=== PATIENT | male | born 1940 | race Hispanic/Latino ===

== ENCOUNTER → 2020-04-04 | Outpatient (CLI) | payer MEDICARE ==
[~2020-04-04] VITALS: Ht 170.2 cm; Wt 90.7 kg
[~2020-04-04] MED LIST: REGADENOSON 0.4 MG/5 ML PF SYG IVP SCH
== END | disposition home or self-care (01) ==
LOC: SHCH 08:06
PROVIDERS: ATTEND Internal Medicine Cardiovascular Disease
DX: I20.0 Unstable angina (principal)
CPT/HCPCS: 78452; 93017; 96374; A9500 ×2; J2785

== ENCOUNTER 2022-09-12 11:53 | Inpatient (IN) | payer BC, MEDICARE, OTHER ==
[~2022-09-12] VITALS: Ht 170.2 cm; Wt 84.5 kg
[2022-09-12 13:53] LABS: HEMATOCRIT 39.5 % (42-54); MEAN CORPUSCULAR HEMOGLOBIN 30.2 pg (27.0-33.0); MEAN CORPUSCULAR HGB CONC 33.2 g/dL (32.0-36.0); RED BLOOD CELL COUNT(AUTO) 4.34 MIL/uL (4.50-6.20); RED CELL DISTRIBUTION WIDTH 13.1 % (11.0-15.5); WHITE BLOOD COUNT (AUTO) 17.3 K/uL (4.8-10.8)
[2022-09-12 14:02] LABS: CREATININE 1.1 mg/dL (0.5-1.5); POTASSIUM 3.8 mmol/L (3.5-5.1)
[2022-09-12 14:07] LABS: ALBUMIN 3.6 g/dL (3.5-5.0); BILIRUBIN,TOTAL 0.6 mg/dL (0.2-1.0); TOTAL PROTEIN, SERUM 7.9 g/dL (6.0-8.3)
[2022-09-12] MEDS ORDERED: MORPHINE 4 MG SYG IVP ONE (16:00)
[2022-09-12] MEDS ORDERED: ONDANSETRON 4MG INJ IVP ONE (16:00)
[2022-09-12] MEDS ORDERED: ONDANSETRON 4MG INJ IVP PRN (16:30)
[2022-09-12] MEDS ORDERED: HYDRALAZINE 20MG/ML VIAL IV PRN (16:30)
[2022-09-12] MEDS ORDERED: TEMAZEPAM 15 MG CAPSULE PO PRN (16:30)
[2022-09-12] MEDS ORDERED: LACTULOSE 20 GM/30 ML UDCUP PO PRN (16:30)
[2022-09-12] MEDS ORDERED: ACETAMINOPHEN 650 MG SUPPOSITORY RC PRN (16:30)
[2022-09-12] MEDS ORDERED: MORPHINE 2 MG SYG IVP PRN (16:30)
[2022-09-12] MEDS ORDERED: MORPHINE 4 MG SYG IVP PRN (16:30)
[2022-09-12] MEDS: INSULIN HUMULIN R 100 UNIT/ML 3ML SQ SCH ×2 (17:24→21:11)
[2022-09-12] MEDS: CEFTRIAXONE 1G VIAL IV SCH (17:25)
[2022-09-12] MEDS: LACTATED RINGERS 1000ML 1,000 ML IV SCH (17:26)
[2022-09-12 17:52] LABS: APPEARANCE,URINE CLEAR (CLEAR); BILIRUBIN,URINE NEGATIVE (NEGATIVE); COLOR,URINE LIGHT-YELLOW (YELLOW); GLUCOSE, URINE (UA) 70 mg/dL (NEGATIVE); KETONES,URINE NEGATIVE (NEGATIVE); LEUKOCYTE ESTERASE ,URINE NEGATIVE Leu/uL (NEGATIVE); NITRATE,URINE NEGATIVE (NEGATIVE); OCCULT BLOOD,URINE NEGATIVE (NEGATIVE); PH,URINE 6.5 (5.0-8.0); PROTEIN,URINE 30 mg/dL (NEGATIVE); UROBILINOGEN,URINE 0.2 mg/dL (0.2-1.0)
[2022-09-12 17:59] LABS: ADD UA MICROSCOPIC YES
[2022-09-12 18:01] LABS: MUCUS,URINE RARE LPF (None Seen); WBC,URINE 0-1 /HPF (0-1)
[2022-09-12] MEDS: METOPROLOL TARTRATE 25 MG TAB PO SCH (21:10)
[2022-09-12 22:55] VITALS: O2SAT 91
[2022-09-12 23:00] VITALS: BP 160/74; PULSE 83; RESP 18
[2022-09-12] MEDS: CLONIDINE HCL 0.1 MG TABLET PO PRN (23:33)
[2022-09-13] VITALS (10 sets, daily range): BP systolic 139–170; BP diastolic 51–75; PULSE 64–81; RESP 16–20; O2SAT 92–97
[2022-09-13] MEDS: AZITHROMYCIN 500MG+NS 250ML IVPB SCH (00:35)
[2022-09-13 04:49] LABS: BASOPHILS # (AUTO) 0.06 K/uL (0.00-0.20); BASOPHILS % (AUTO) 0.4 % (0.0-5.0); EOSINOPHILS # (AUTO) 0.22 K/uL (0.00-0.70); EOSINOPHILS % (AUTO) 1.6 % (0.0-8.0); HEMATOCRIT 35.9 % (42-54); IMMATURE GRANULOCYTE ABSOLUTE 0.06 K/uL (0-1); LYMPHOCYTES # (AUTO) 2.2 K/uL (1.0-4.8); LYMPHOCYTES % (AUTO) 16.6 % (21.0-51.0); MEAN CORPUSCULAR HEMOGLOBIN 29.8 pg (27.0-33.0); MEAN CORPUSCULAR HGB CONC 33.1 g/dL (32.0-36.0); MONOCYTES # (AUTO) 0.8 K/uL (0.1-1.0); MONOCYTES % (AUTO) 5.9 % (3.0-13.0); NEUTROPHILS # (AUTO) 10.1 K/uL (1.8-7.7); NEUTROPHILS % (AUTO) 75.1 % (40.0-77.0); PLATELET COUNT (AUTO) 171 K/uL (130-400); RED BLOOD CELL COUNT(AUTO) 3.99 MIL/uL (4.50-6.20); RED CELL DISTRIBUTION WIDTH 13.2 % (11.0-15.5); WHITE BLOOD COUNT (AUTO) 13.4 K/uL (4.8-10.8)
[2022-09-13 04:59] LABS: INR 1.06 (0.85-1.15); PROTHROMBIN TIME 12.2 SEC (9.6-11.6)
[2022-09-13 05:01] LABS: CREATININE 1.1 mg/dL (0.5-1.5); MAGNESIUM 1.7 mg/dL (1.80-2.40); PARTIAL THROMBOPLASTIN TIME 31.9 SEC (26.3-35.5); PHOSPHORUS 3.3 mg/dL (2.5-4.9); POTASSIUM 3.6 mmol/L (3.5-5.1)
[2022-09-13] MEDS: INSULIN HUMULIN R 100 UNIT/ML 3ML SQ SCH ×4 (06:11→21:00)
[2022-09-13 07:35] LABS: ABG BASE EXCESS 2.4 mmol/L (-2.0-3.0); ABG HCO3 27.5 mmol/L (21.0-28.0); ABG OXYGEN SATURATION 84.1 % (95.0-99.0); ABG PCO2 44 mmHg (35-48); ABG PH 7.413 (7.35-7.450); DEVICE COMMENT RR, MARY,RN; PO2, ARTERIAL BG 47.9 mmHg (83.0-108.0)
[2022-09-13] MEDS: LACTATED RINGERS 1000ML 1,000 ML IV SCH (09:23)
[2022-09-13] MEDS: METOPROLOL TARTRATE 25 MG TAB PO SCH ×2 (09:23→21:19)
[2022-09-13] MEDS: PANTOPRAZOLE 40 MG TAB DR PO SCH (09:23)
[2022-09-13] MEDS: ENOXAPARIN SODIUM 30 MG/0.3 ML SQ SCH (09:24)
[2022-09-13] MEDS ORDERED: IOHEXOL-350 75 ML VIAL IV ONE (09:38)
[2022-09-13] MEDS: POLYETHYLENE GLYCOL 3350 17 GM POWD.PACK PO SCH (11:02)
[2022-09-13] MEDS: IPRATROPIUM/ALBUTEROL SULFATE 3 ML SOLUTION IH SCH ×3 (11:27→19:18)
[2022-09-13 11:32] LABS: SARS-CoV-2, RNA, NAAT NEGATIVE SARS CoV-2 (NEGATIVE)
[2022-09-13 11:35] LABS: INFLUENZA TYPE A Negative For Type A (NEGATIVE); INFLUENZA TYPE B Negative For Type B (NEGATIVE)
[2022-09-13] MEDS: CEFTRIAXONE 1G VIAL IV SCH (17:28)
[2022-09-13] MEDS: KETOROLAC 15MG/ML VIAL (15MG/ML) IV PRN (21:27)
[2022-09-14] VITALS (33 sets, daily range): BP systolic 137–186; BP diastolic 53–76; PULSE 60–93; RESP 15–21; O2SAT 94–98
[2022-09-14] MEDS: IPRATROPIUM/ALBUTEROL SULFATE 3 ML SOLUTION IH SCH ×5 (00:41→23:25)
[2022-09-14] MEDS: AZITHROMYCIN 500MG+NS 250ML IVPB SCH (00:45)
[2022-09-14 04:59] LABS: HEMATOCRIT 35.7 % (42-54); MEAN CORPUSCULAR HEMOGLOBIN 29.4 pg (27.0-33.0); MEAN CORPUSCULAR HGB CONC 32.5 g/dL (32.0-36.0); MEAN CORPUSCULAR VOLUME 90.4 fL (79-99); RED BLOOD CELL COUNT(AUTO) 3.95 MIL/uL (4.50-6.20); RED CELL DISTRIBUTION WIDTH 13.1 % (11.0-15.5); WHITE BLOOD COUNT (AUTO) 13.4 K/uL (4.8-10.8)
[2022-09-14 05:11] LABS: CREATININE 1.2 mg/dL (0.5-1.5); MAGNESIUM 1.7 mg/dL (1.80-2.40); POTASSIUM 4.1 mmol/L (3.5-5.1)
[2022-09-14] MEDS: INSULIN HUMULIN R 100 UNIT/ML 3ML SQ SCH ×4 (07:30→20:15)
[2022-09-14] MEDS: METOPROLOL TARTRATE 25 MG TAB PO SCH ×2 (07:33→20:12)
[2022-09-14] MEDS ORDERED: LIDOCAINE PF 100MG/5ML (2%) SYRINGE 5ML ONE (07:55)
[2022-09-14] MEDS ORDERED: FENTANYL CITRATE PF 50 MCG/1 ML 2ML VIAL ONE ×2 (07:56→09:39)
[2022-09-14] MEDS ORDERED: PROPOFOL 10 MG/ML 20ML VIAL IV ONE (07:56)
[2022-09-14] MEDS ORDERED: MIDAZOLAM HCL 1 MG/ML 2ML VIAL ONE (07:56)
[2022-09-14] MEDS ORDERED: ROCURONIUM 10MG/1ML SYR 10 MG/ML ML ONE (07:56)
[2022-09-14] MEDS ORDERED: GLYCOPYRROLATE 1 MG/5 ML SYRINGE ONE (08:00)
[2022-09-14] MEDS ORDERED: NEOSTIGMINE 5MG/5ML SYR IV ONE (08:01)
[2022-09-14] MEDS ORDERED: PHENYLEPHRINE HCL 10 MG/ML 1ML VIAL IV ONE (08:01)
[2022-09-14] MEDS ORDERED: ROPIVACAINE 0.5% 5MG/ML 30ML IJ ONE (08:04)
[2022-09-14] MEDS: PANTOPRAZOLE 40 MG TAB DR PO SCH (09:00)
[2022-09-14] MEDS: POLYETHYLENE GLYCOL 3350 17 GM POWD.PACK PO SCH (09:00)
[2022-09-14] MEDS: ENOXAPARIN SODIUM 30 MG/0.3 ML SQ SCH (09:00)
[2022-09-14] MEDS ORDERED: DEXAMETHASONE SOD PHOSPHATE 10MG/ML 1ML VIAL ONE (09:11)
[2022-09-14] MEDS ORDERED: ONDANSETRON 4MG INJ ONE ×2 (09:11→11:23)
[2022-09-14] MEDS: CEFTRIAXONE 1G VIAL IV SCH (16:18)
[2022-09-14] MEDS: BUDESONIDE 0.25 MG/2 ML INH IH SCH (19:10)
[2022-09-15] VITALS (13 sets, daily range): BP systolic 113–169; BP diastolic 54–72; PULSE 70–98; RESP 17–20; O2SAT 95–99
[2022-09-15] MEDS: AZITHROMYCIN 500MG+NS 250ML IVPB SCH (04:39)
[2022-09-15 04:58] LABS: HEMATOCRIT 30.8 % (42-54); MEAN CORPUSCULAR HEMOGLOBIN 30.2 pg (27.0-33.0); MEAN CORPUSCULAR HGB CONC 34.1 g/dL (32.0-36.0); MEAN CORPUSCULAR VOLUME 88.5 fL (79-99); RED BLOOD CELL COUNT(AUTO) 3.48 MIL/uL (4.50-6.20); RED CELL DISTRIBUTION WIDTH 13.1 % (11.0-15.5); WHITE BLOOD COUNT (AUTO) 14.2 K/uL (4.8-10.8)
[2022-09-15 05:16] LABS: CREATININE 1.2 mg/dL (0.5-1.5); MAGNESIUM 1.9 mg/dL (1.80-2.40); POTASSIUM 3.6 mmol/L (3.5-5.1)
[2022-09-15] MEDS: KETOROLAC 15MG/ML VIAL (15MG/ML) IV PRN (05:44)
[2022-09-15] MEDS: IPRATROPIUM/ALBUTEROL SULFATE 3 ML SOLUTION IH SCH ×4 (06:46→23:09)
[2022-09-15] MEDS: BUDESONIDE 0.25 MG/2 ML INH IH SCH ×2 (06:46→19:32)
[2022-09-15] MEDS: INSULIN HUMULIN R 100 UNIT/ML 3ML SQ SCH ×4 (07:27→21:12)
[2022-09-15] MEDS: METOPROLOL TARTRATE 25 MG TAB PO SCH ×2 (08:30→21:11)
[2022-09-15] MEDS: ENOXAPARIN SODIUM 30 MG/0.3 ML SQ SCH (08:31)
[2022-09-15] MEDS: PANTOPRAZOLE 40 MG TAB DR PO SCH (08:31)
[2022-09-15] MEDS: POLYETHYLENE GLYCOL 3350 17 GM POWD.PACK PO SCH (08:31)
[2022-09-15] MEDS: HYDROCODONE/ACETAMINOPHEN 5/325 MG TAB PO PRN (17:42)
[2022-09-15] MEDS: CEFTRIAXONE 1G VIAL IV SCH (17:46)
[2022-09-16] VITALS (9 sets, daily range): BP systolic 155–164; BP diastolic 60–65; PULSE 71–89; RESP 18–22; O2SAT 92–98
[2022-09-16] MEDS: AZITHROMYCIN 500MG+NS 250ML IVPB SCH ×2 (00:30→23:55)
[2022-09-16] MEDS: INSULIN HUMULIN R 100 UNIT/ML 3ML SQ SCH ×4 (07:30→20:01)
[2022-09-16] MEDS: METOPROLOL TARTRATE 25 MG TAB PO SCH ×2 (09:00→19:55)
[2022-09-16] MEDS: PANTOPRAZOLE 40 MG TAB DR PO SCH (09:00)
[2022-09-16] MEDS: POLYETHYLENE GLYCOL 3350 17 GM POWD.PACK PO SCH (09:00)
[2022-09-16] MEDS: ENOXAPARIN SODIUM 30 MG/0.3 ML SQ SCH (09:00)
[2022-09-16 10:28] LABS: CREATININE 1.5 mg/dL (0.5-1.5); POTASSIUM 3.6 mmol/L (3.5-5.1)
[2022-09-16] MEDS: IPRATROPIUM/ALBUTEROL SULFATE 3 ML SOLUTION IH SCH ×3 (11:13→23:17)
[2022-09-16] MEDS: HYDROCODONE/ACETAMINOPHEN 5/325 MG TAB PO PRN (13:25)
[2022-09-16 14:37] LABS: HEMATOCRIT 28.3 % (42-54); MEAN CORPUSCULAR HEMOGLOBIN 30.1 pg (27.0-33.0); MEAN CORPUSCULAR HGB CONC 33.2 g/dL (32.0-36.0); MEAN CORPUSCULAR VOLUME 90.7 fL (79-99); RED BLOOD CELL COUNT(AUTO) 3.12 MIL/uL (4.50-6.20); RED CELL DISTRIBUTION WIDTH 13.6 % (11.0-15.5); WHITE BLOOD COUNT (AUTO) 11.7 K/uL (4.8-10.8)
[2022-09-16] MEDS: CEFTRIAXONE 1G VIAL IV SCH (16:26)
[2022-09-16] MEDS: BUDESONIDE 0.25 MG/2 ML INH IH SCH (18:26)
[2022-09-16] MEDS: APIXABAN 2.5 MG TABLET PO SCH (19:56)
[2022-09-17] VITALS (16 sets, daily range): BP systolic 97–168; BP diastolic 55–64; PULSE 69–91; RESP 16–18; O2SAT 92–98
[2022-09-17 05:13] LABS: HEMATOCRIT 29.1 % (42-54); MEAN CORPUSCULAR HEMOGLOBIN 30.3 pg (27.0-33.0); MEAN CORPUSCULAR HGB CONC 32.6 g/dL (32.0-36.0); MEAN CORPUSCULAR VOLUME 92.7 fL (79-99); RED BLOOD CELL COUNT(AUTO) 3.14 MIL/uL (4.50-6.20); RED CELL DISTRIBUTION WIDTH 13.5 % (11.0-15.5)
[2022-09-17] MEDS: CLONIDINE HCL 0.1 MG TABLET PO PRN ×2 (05:13→23:46)
[2022-09-17 05:21] LABS: CREATININE 1.2 mg/dL (0.5-1.5); MAGNESIUM 2.1 mg/dL (1.80-2.40); POTASSIUM 3.4 mmol/L (3.5-5.1)
[2022-09-17] MEDS: BUDESONIDE 0.25 MG/2 ML INH IH SCH ×2 (06:39→18:24)
[2022-09-17] MEDS: IPRATROPIUM/ALBUTEROL SULFATE 3 ML SOLUTION IH SCH ×4 (06:39→23:02)
[2022-09-17] MEDS: INSULIN HUMULIN R 100 UNIT/ML 3ML SQ SCH ×4 (06:56→20:34)
[2022-09-17] MEDS: PANTOPRAZOLE 40 MG TAB DR PO SCH (08:27)
[2022-09-17] MEDS: APIXABAN 2.5 MG TABLET PO SCH ×2 (08:27→20:32)
[2022-09-17] MEDS: METOPROLOL TARTRATE 25 MG TAB PO SCH ×2 (08:27→20:32)
[2022-09-17] MEDS: POLYETHYLENE GLYCOL 3350 17 GM POWD.PACK PO SCH (08:29)
[2022-09-17] MEDS: HYDROCODONE/ACETAMINOPHEN 5/325 MG TAB PO PRN (15:32)
[2022-09-17] MEDS: CEFTRIAXONE 1G VIAL IV SCH (16:50)
[2022-09-17] MEDS: AZITHROMYCIN 500MG+NS 250ML IVPB SCH (23:46)
[2022-09-18] VITALS (12 sets, daily range): BP systolic 139–172; BP diastolic 46–66; PULSE 64–81; RESP 18–20; O2SAT 93–98
[2022-09-18] MEDS: HYDROCODONE/ACETAMINOPHEN 5/325 MG TAB PO PRN (04:26)
[2022-09-18] MEDS: INSULIN HUMULIN R 100 UNIT/ML 3ML SQ SCH ×4 (06:11→20:15)
[2022-09-18] MEDS: BUDESONIDE 0.25 MG/2 ML INH IH SCH ×2 (06:27→18:45)
[2022-09-18] MEDS: IPRATROPIUM/ALBUTEROL SULFATE 3 ML SOLUTION IH SCH ×3 (06:27→18:45)
[2022-09-18] MEDS: APIXABAN 2.5 MG TABLET PO SCH ×2 (08:09→20:13)
[2022-09-18] MEDS: POLYETHYLENE GLYCOL 3350 17 GM POWD.PACK PO SCH (08:09)
[2022-09-18] MEDS: METOPROLOL TARTRATE 25 MG TAB PO SCH ×2 (08:09→20:13)
[2022-09-18] MEDS: PANTOPRAZOLE 40 MG TAB DR PO SCH (08:09)
[2022-09-18] MEDS: CEFTRIAXONE 1G VIAL IV SCH (17:40)
[2022-09-19] VITALS (12 sets, daily range): BP systolic 136–163; BP diastolic 20–63; PULSE 68–73; RESP 17–20; O2SAT 95–97
[2022-09-19] MEDS: AZITHROMYCIN 500MG+NS 250ML IVPB SCH (02:47)
[2022-09-19] MEDS: IPRATROPIUM/ALBUTEROL SULFATE 3 ML SOLUTION IH SCH ×3 (06:12→18:57)
[2022-09-19] MEDS: BUDESONIDE 0.25 MG/2 ML INH IH SCH ×2 (06:12→18:57)
[2022-09-19] MEDS: INSULIN HUMULIN R 100 UNIT/ML 3ML SQ SCH ×4 (07:05→20:18)
[2022-09-19] MEDS: POLYETHYLENE GLYCOL 3350 17 GM POWD.PACK PO SCH (08:28)
[2022-09-19] MEDS: METOPROLOL TARTRATE 25 MG TAB PO SCH ×2 (08:28→20:17)
[2022-09-19] MEDS: APIXABAN 2.5 MG TABLET PO SCH ×2 (08:28→20:17)
[2022-09-19] MEDS: PANTOPRAZOLE 40 MG TAB DR PO SCH (08:28)
[2022-09-19] MEDS: ACETAMINOPHEN 325 MG TAB PO PRN (10:14)
[2022-09-19] MEDS: CEFTRIAXONE 1G VIAL IV SCH (16:58)
[2022-09-20] VITALS (14 sets, daily range): BP systolic 147–161; BP diastolic 53–65; PULSE 63–81; RESP 16–20; O2SAT 95–99
[2022-09-20] MEDS: AZITHROMYCIN 500MG+NS 250ML IVPB SCH (00:05)
[2022-09-20] MEDS: IPRATROPIUM/ALBUTEROL SULFATE 3 ML SOLUTION IH SCH ×5 (00:41→23:19)
[2022-09-20] MEDS: BUDESONIDE 0.25 MG/2 ML INH IH SCH ×2 (06:55→19:38)
[2022-09-20] MEDS: INSULIN HUMULIN R 100 UNIT/ML 3ML SQ SCH ×4 (07:30→20:34)
[2022-09-20] MEDS: APIXABAN 2.5 MG TABLET PO SCH ×2 (08:53→20:34)
[2022-09-20] MEDS: METOPROLOL TARTRATE 25 MG TAB PO SCH ×2 (08:53→20:34)
[2022-09-20] MEDS: POLYETHYLENE GLYCOL 3350 17 GM POWD.PACK PO SCH (08:53)
[2022-09-20] MEDS: PANTOPRAZOLE 40 MG TAB DR PO SCH (08:53)
[2022-09-20] MEDS: CEFTRIAXONE 1G VIAL IV SCH (17:14)
[2022-09-20] MEDS ORDERED: APIXABAN 2.5 MG TABLET PO ONE (20:12)
[2022-09-21] VITALS (15 sets, daily range): BP systolic 130–164; BP diastolic 55–70; PULSE 66–82; RESP 16–20; O2SAT 96–98
[2022-09-21] MEDS: AZITHROMYCIN 500MG+NS 250ML IVPB SCH (00:13)
[2022-09-21] MEDS: INSULIN HUMULIN R 100 UNIT/ML 3ML SQ SCH ×4 (06:13→20:50)
[2022-09-21] MEDS: BUDESONIDE 0.25 MG/2 ML INH IH SCH ×2 (06:32→19:02)
[2022-09-21] MEDS: IPRATROPIUM/ALBUTEROL SULFATE 3 ML SOLUTION IH SCH ×4 (06:32→23:55)
[2022-09-21] MEDS: POLYETHYLENE GLYCOL 3350 17 GM POWD.PACK PO SCH (09:00)
[2022-09-21] MEDS: ACETAMINOPHEN 325 MG TAB PO PRN (10:23)
[2022-09-21] MEDS: METOPROLOL TARTRATE 25 MG TAB PO SCH ×2 (10:24→20:51)
[2022-09-21] MEDS: PANTOPRAZOLE 40 MG TAB DR PO SCH (10:24)
[2022-09-21] MEDS: APIXABAN 2.5 MG TABLET PO SCH ×2 (10:24→20:52)
[2022-09-21] MEDS: CEFTRIAXONE 1G VIAL IV SCH (16:33)
[2022-09-22] MEDS: AZITHROMYCIN 500MG+NS 250ML IVPB SCH (00:42)
[2022-09-22 07:05] VITALS: PULSE 70; RESP 18
[2022-09-22] MEDS: POLYETHYLENE GLYCOL 3350 17 GM POWD.PACK PO SCH (09:00)
[2022-09-22] MEDS: PANTOPRAZOLE 40 MG TAB DR PO SCH (09:00)
[2022-09-22 12:20] VITALS: PULSE 73; RESP 18
[2022-09-22] MEDS: CEFTRIAXONE 1G VIAL IV SCH (16:30)
[2022-09-22 19:10] VITALS: PULSE 70; PULSE 71; RESP 18; O2SAT 96
[2022-09-22 19:20] VITALS: PULSE 70; RESP 18
[2022-09-22] MEDS: APIXABAN 2.5 MG TABLET PO SCH (21:00)
[2022-09-22] MEDS: METOPROLOL TARTRATE 25 MG TAB PO SCH (21:00)
[2022-09-22] MEDS: INSULIN HUMULIN R 100 UNIT/ML 3ML SQ SCH (21:00)
[2022-09-23] VITALS (14 sets, daily range): BP systolic 153–165; BP diastolic 56–72; PULSE 59–81; RESP 16–19; O2SAT 95–98
[2022-09-23] MEDS: AZITHROMYCIN 500MG+NS 250ML IVPB SCH (00:40)
[2022-09-23] MEDS: INSULIN HUMULIN R 100 UNIT/ML 3ML SQ SCH ×4 (06:01→20:27)
[2022-09-23] MEDS: BUDESONIDE 0.25 MG/2 ML INH IH SCH ×2 (06:37→18:48)
[2022-09-23] MEDS: IPRATROPIUM/ALBUTEROL SULFATE 3 ML SOLUTION IH SCH ×4 (06:37→23:38)
[2022-09-23] MEDS: PANTOPRAZOLE 40 MG TAB DR PO SCH (07:51)
[2022-09-23] MEDS: POLYETHYLENE GLYCOL 3350 17 GM POWD.PACK PO SCH (07:51)
[2022-09-23] MEDS: METOPROLOL TARTRATE 25 MG TAB PO SCH ×2 (07:51→20:26)
[2022-09-23] MEDS: APIXABAN 2.5 MG TABLET PO SCH ×2 (07:51→20:26)
[2022-09-23] MEDS: CEFTRIAXONE 1G VIAL IV SCH (17:17)
[2022-09-24] VITALS (15 sets, daily range): BP systolic 129–170; BP diastolic 51–79; PULSE 63–83; RESP 16–24; O2SAT 96–98
[2022-09-24] MEDS: AZITHROMYCIN 500MG+NS 250ML IVPB SCH (00:51)
[2022-09-24] MEDS: IPRATROPIUM/ALBUTEROL SULFATE 3 ML SOLUTION IH SCH ×4 (06:26→23:39)
[2022-09-24] MEDS: BUDESONIDE 0.25 MG/2 ML INH IH SCH ×2 (06:26→19:11)
[2022-09-24] MEDS: INSULIN HUMULIN R 100 UNIT/ML 3ML SQ SCH ×4 (06:41→21:07)
[2022-09-24] MEDS: METOPROLOL TARTRATE 25 MG TAB PO SCH ×2 (08:19→21:02)
[2022-09-24] MEDS: PANTOPRAZOLE 40 MG TAB DR PO SCH (08:19)
[2022-09-24] MEDS: CLONIDINE HCL 0.1 MG TABLET PO PRN ×2 (08:19→16:12)
[2022-09-24] MEDS: APIXABAN 2.5 MG TABLET PO SCH ×2 (08:20→21:02)
[2022-09-24] MEDS: POLYETHYLENE GLYCOL 3350 17 GM POWD.PACK PO SCH (08:22)
[2022-09-24] MEDS: CEFTRIAXONE 1G VIAL IV SCH (16:01)
[2022-09-25] VITALS (9 sets, daily range): BP systolic 125–161; BP diastolic 49–73; PULSE 63–78; RESP 18–24; O2SAT 97–98
[2022-09-25] MEDS: AZITHROMYCIN 500MG+NS 250ML IVPB SCH (00:12)
[2022-09-25] MEDS: INSULIN HUMULIN R 100 UNIT/ML 3ML SQ SCH ×3 (06:25→16:30)
[2022-09-25] MEDS: BUDESONIDE 0.25 MG/2 ML INH IH SCH (07:05)
[2022-09-25] MEDS: IPRATROPIUM/ALBUTEROL SULFATE 3 ML SOLUTION IH SCH ×2 (07:05→11:42)
[2022-09-25] MEDS: METOPROLOL TARTRATE 25 MG TAB PO SCH (09:41)
[2022-09-25] MEDS: PANTOPRAZOLE 40 MG TAB DR PO SCH (09:41)
[2022-09-25] MEDS: POLYETHYLENE GLYCOL 3350 17 GM POWD.PACK PO SCH (09:42)
[2022-09-25] MEDS: APIXABAN 2.5 MG TABLET PO SCH (09:42)
[2022-09-25] MEDS: ACETAMINOPHEN 325 MG TAB PO PRN (10:02)
[2022-09-25 11:22] LABS: HEMATOCRIT 30.4 % (42-54); MEAN CORPUSCULAR HEMOGLOBIN 30.8 pg (27.0-33.0); MEAN CORPUSCULAR HGB CONC 33.9 g/dL (32.0-36.0); RED BLOOD CELL COUNT(AUTO) 3.34 MIL/uL (4.50-6.20); RED CELL DISTRIBUTION WIDTH 14.4 % (11.0-15.5)
[2022-09-25 11:38] LABS: CREATININE 1.1 mg/dL (0.5-1.5); POTASSIUM 3.4 mmol/L (3.5-5.1)
[2022-09-25] MEDS: CEFTRIAXONE 1G VIAL IV SCH (17:26)
== END 2022-09-25 19:20 | DRG 480 ==
LOC: EDH 11:53 → EDHIP 16:10 → 4CH 22:29
PROVIDERS: ADMIT Internal Medicine; ATTEND Internal Medicine
PROC: 0QS606Z Reposition Right Upper Femur with Intramedullary Internal Fixation Device, Open Approach (ICD-10-PCS; principal; 2022-09-14 08:35)
DX: S72.141A Displaced intertrochanteric fracture of right femur, initial encounter for closed fracture (principal); J96.01 Acute respiratory failure with hypoxia; J44.1 Chronic obstructive pulmonary disease with (acute) exacerbation; K80.20 Calculus of gallbladder without cholecystitis without obstruction; W18.39XA Other fall on same level, initial encounter; E11.65 Type 2 diabetes mellitus with hyperglycemia; D72.829 Elevated white blood cell count, unspecified; K76.0 Fatty (change of) liver, not elsewhere classified; Z20.822 Contact with and (suspected) exposure to COVID-19; E66.9 Obesity, unspecified; I10 Essential (primary) hypertension; Z83.3 Family history of diabetes mellitus; Z82.49 Family history of ischemic heart disease and other diseases of the circulatory system; Y93.89 Activity, other specified; Y92.89 Other specified places as the place of occurrence of the external cause; Y99.8 Other external cause status; Z87.891 Personal history of nicotine dependence; Z68.29 Body mass index [BMI] 29.0-29.9, adult
CPT/HCPCS: 36415; 36600; 70450; 71045; 71270; 73100; 73502; 73503; 76700; 80048; 80053; 81001; 82803; 82948; 83605; 83735; 83880; 84100; 84145; 85025; 85027; 85378; 85610; 85730; 87635; 87804; 93005; 94640; 94664; 97039; G0378; J0360; J0456; J0696; J1100; J1650; J1815; J1885; J2001; J2250; J2270; J2371; J2405; J2704; J2710; J2795; J3010; J3490; J7120; Q9967

== ENCOUNTER → 2024-02-02 | Outpatient (CLI) | payer MEDICARE ==
[~2024-02-02] MED LIST changes: +AMLO-257 PO; +ASPI-1443 PO; +ATOR40TA71 PO; +EMPA10TA PO; +FINA5TAB41 PO; +HUMLIS7525 SQ; +ISOS30TA92 PO; +LOSA25TA41 PO; +METO50TA18 PO; -REGADENOSON 0.4 MG/5 ML PF SYG IVP SCH; +TAMS-1 PO
--- NOTE | 2024-02-02 16:21 | HMCIMG ---
Exam Type: US SOFT TISSUE NECK Clinical Information: LOCALIZED SWELLING Comparison: None Findings: Multiple lymph nodes of the right lateral neck are seen at the area of concern, largest 1.8 cm. These might be reactive. IMPRESSION: Multiple lymph nodes. If suspected of reactive lymph nodes, consider short-term follow-up.
== END | disposition home or self-care (01) ==
LOC: RAH 14:53
PROVIDERS: ATTEND Family Medicine
DX: R22.1 Localized swelling, mass and lump, neck (principal)
CPT/HCPCS: 76536

== ENCOUNTER 2024-06-05 14:34 | Emergency (ER) | payer OTHER, MEDICARE ==
[~2024-06-05] VITALS: Ht 167.6 cm; Wt 66.7 kg
[~2024-06-05 14:34] MED LIST changes: -ASPI-1443 PO; -FINA5TAB41 PO; +HYDR-4060 PO; -TAMS-1 PO; +TAMS-55 PO
[2024-06-05 14:43] VITALS: BP 141/75; PULSE 110; RESP 14; TEMP 98.5
[2024-06-05] MEDS ORDERED: LACTATED RINGERS 1000ML 1,000 ML IV ONE (15:00)
--- NOTE | 2024-06-05 15:35 | HMCIMG ---
CT ABDOMEN/PELVIS W/O CONTRAST INDICATION: constipation vs SBO TECHNIQUE: CT ABDOMEN/PELVIS W/O CONTRAST. Oral contrast was not given. Coronal and sagittal reformats were performed. CT was performed with one or more of the following dose reduction techniques: Automated exposure control, adjustment of the mA and/or kV according to the patient's size, or use of the iterative reconstruction technique. Comparison: None. FINDINGS: The noncontrast nature this study limits evaluation of abdominal viscera. Mild atelectatic changes are seen in the lung bases. Tree-in-bud opacities in the lung base concerning for bronchitis/bronchiolitis. Cystic bronchiectasis in the right middle lobe. Calcified bilateral pleural plaques which may may represent asbestos exposure in the proper clinical setting. Gastrostomy tube is seen place. There is hepatic steatosis. Cholecystectomy changes are noted. The spleen, pancreas, and adrenal glands are within normal limits. No hydronephrosis. The urinary bladder is partially collapsed. Bilateral renal cysts. Some of the renal hypodensities are too small to characterize. Correlate with ultrasound in 3-6 months. Prominent fecal material is seen in the colon suggestive of constipation. There is wall thickening of the rectum with mild adjacent stranding concerning for underlying proctitis. Diverticulosis coli without evidence of acute diverticulitis. No bowel obstruction is seen. Appendix is not clearly visualized limiting evaluation. Correlate clinically. Small fat-containing umbilical hernias are seen. Atherosclerotic changes of the aorta with calcified plaques. Degenerative changes of the spine are seen. IMPRESSION: Findings and recommendations as described above.
--- NOTE | 2024-06-05 16:00 | NUR ---
ASSUMED CARE AT THIS TIME. PT MOVED INTO ER [id number] FROM ER LOBBY.
[2024-06-05 16:32] LABS: BASOPHILS # (AUTO) 0.01 K/uL (0.00-0.20); BASOPHILS % (AUTO) 0.1 % (0.0-5.0); EOSINOPHILS # (AUTO) 0.03 K/uL (0.00-0.70); EOSINOPHILS % (AUTO) 0.2 % (0.0-8.0); HEMATOCRIT 40.9 % (42-54); IMMATURE GRANULOCYTE ABSOLUTE 0.06 K/uL (0-1); LYMPHOCYTES # (AUTO) 1.2 K/uL (1.0-4.8); MEAN CORPUSCULAR HEMOGLOBIN 31.2 pg (27.0-33.0); MEAN CORPUSCULAR VOLUME 91.7 fL (79-99); MONOCYTES # (AUTO) 0.7 K/uL (0.1-1.0); MONOCYTES % (AUTO) 4.8 % (3.0-13.0); NEUTROPHILS # (AUTO) 11.5 K/uL (1.8-7.7); NEUTROPHILS % (AUTO) 85.5 % (40.0-77.0); PLATELET COUNT (AUTO) 240 K/uL (130-400); RED BLOOD CELL COUNT(AUTO) 4.46 MIL/uL (4.50-6.20); RED CELL DISTRIBUTION WIDTH 13.3 % (11.0-15.5); WHITE BLOOD COUNT (AUTO) 13.5 K/uL (4.8-10.8)
[2024-06-05 16:40] LABS: CREATININE 1.1 mg/dL (0.5-1.3); POTASSIUM 4.1 mmol/L (3.5-5.1)
--- NOTE | 2024-06-05 17:00 | NUR ---
PT GIVEN WATER ENEMA WITH 100 MG DOCUSATE RECTALLY, PT TOLERATED WELL. NO RESULT AT THIS TIME.
[2024-06-05] MEDS: LACTULOSE 20 GM/30 ML UDCUP PEG ONE (17:23)
--- NOTE | 2024-06-05 18:18 | ERN ---
General Chief Complaint: Constipation Stated Complaint: CONSTIPATION Time Seen by MD: 14:40 History of Present Illness Initial Comments 83 male presents for constipation. Patient reports decreased stool production recently. He reports a few very small loose stools but feels like there is stool stuck. No fevers, vomiting, or abdominal pain. Patient had a recent PEG tube placed for throat cancer, does not take oral intake. He also recently took Geddes tabs for pain. Allergies: Coded Allergies: pneumococcal vaccine (Unverified Allergy, Unknown, 02/06/24) Home Meds Active Scripts Lactulose (Lactulose) 10 Gram/15 Ml Solution, 30 ML PEG TID for constipation, #500 ML 0 Refills Prov:MARCIN MENCHACA DO 06/05/24 Na Phos,M-B/Na Phos,Di-Ba (Fleet Enema) 19 Gram-7 Gram/118 Ml Enema, 1 EACH SC BID for constipation for 3 Days, #10 EACH 0 Refills Prov:MARCIN MENCHACA DO 06/05/24 Reported Medications Hydrocodone/Acetaminophen (Hydrocodon-Acetaminophen 5-325) 5 Mg-325 Mg Tablet, 1 EACH PO [id number] PRN for PAIN LEVEL 1 TO 5, TAB 05/11/24 Tamsulosin HCl (Flomax) 0.4 Mg Cap.er.24h, 0.4 MG PO DAILY, CAPSULE.DR 05/11/24 Atorvastatin Calcium (Atorvastatin Calcium) 40 Mg Tablet, 40 MG PO HS, TAB 05/11/24 Isosorbide Mononitrate (Isosorbide Mononitrate ER) 30 Mg Tab.er.24h, 30 MG PO DAILY, TAB 05/11/24 Losartan Potassium (Losartan Potassium) 25 Mg Tablet, 25 MG PO DAILY, TAB 05/11/24 Amlodipine Besylate (Amlodipine Besylate) 5 Mg Tablet, 5 MG PO DAILY, TAB 05/11/24 Metoprolol Tartrate (Metoprolol Tartrate) 50 Mg Tablet, 50 MG PO BID, TAB 05/11/24 Insulin NPL/Insulin Lispro (Humalog Mix 75/25) 100 Unit/Ml (75-25) Inj, 20 UNITS SQ DAILY, ML 05/11/24 Empagliflozin (Jardiance) 10 Mg Tablet, 10 MG PO DAILY, TAB 05/11/24 Past Medical History Past Medical History: Cancer, COPD, Diabetes-Type II, High Cholesterol, Hypertension Medical History Other: BPH Past Surgical History: Cholecystectomy Social History Social History: Negative, Lives with family ROS Dictation CONSTITUTIONAL: No chills, no fever, no weakness, no diaphoresis, no malaise. HEAD/FACE: No signs of trauma. EENT: No eye pain, no blurred vision, no tearing, no double vision, no ear pain, no ear discharge, no nose pain, no nasal congestion, no throat pain, no throat swelling, no mouth pain. RESPIRATORY: No cough, no orthopnea, no SOB, no stridor, no wheezing. CARDIOVASCULAR: No chest pain, no edema, no palpitations, no syncope. GASTROINTESTINAL/ABDOMINAL: Constipation GENITOURINARY: No abnormal discharge, no dysuria, no frequent urination, no hematuria. No complaints of pain in the genitals. MUSCULOSKELETAL: No back pain, no gout, no joint pain, no joint swelling, no muscle pain, no muscle stiffness, no neck pain. INTEGUMENTARY: No change in color, no change in hair/nails, no dryness, no lesion, no lumps, no rash. NEUROLOGICAL/PSYCH: No anxiety, not depressed, no emotional problem, no headache, no numbness, no pre-existing deficit, no history of seizures, no tremors, no weakness. HEMATOLOGIC/LYMPHATIC: Not anemic, no history of blood clots, no apparent bleeding, no bruising, glands not swollen. All Systems Negative, Except as Noted. Physical Exam Physical Exam Dictation VITAL SIGNS: Reviewed. GENERAL APPEARANCE: Alert, oriented x3, mild distress due to discomfort HEAD AND FACE: Non-traumatic. EYES: PERRL, pink conjunctivas, eyelid no trauma, anterior chamber clear. EARS: Pinnas intact and no signs of trauma or erythema. Ear canals clear and no discharge. TMs no erythema. NOSE: No discharge, no bleeding. OROPHARYNX: Mouth normal, teeth no caries, tongue pink. Pharynx clear, no erythema. Tonsils no exudates, no abscesses noted. Mucous membrane moist. NECK: Supple, non-tender, no thyromegaly, no masses, no JVD, no bruits. BREAST: Deferred. CHEST: No tenderness, no crepitus, no paradoxical movement, no retractions. LUNGS: Clear, well-ventilated, symmetric, no rales, no wheezing, no rhonchi, no stridor, good breath sounds bilaterally. HEART: Regular rate, regular rhythm, no murmur, no gallops. VASCULAR: No peripheral edema. ABDOMEN: Soft, positive bowel sounds, nondistended, no guarding, nontender, no rebound, no masses no hepatomegaly, no splenomegaly, no Shaikh's sign, no hernias. PEG tube RECTAL: Deferred. GENITAL: Deferred. NEUROLOGICAL: Normal speech, gross motor function intact, gross sensory function intact. MUSCULOSKELETAL: Neck nontender, full range of motion, back nontender, full range of motion. EXTREMITIES: Nontender, full range of motion. SKIN: Color pink, dry, no turgor, no rash, no lacerations, no abrasions, no contusions. LYMPHATICS: Deferred. Results Laboratory and Microbiology Lab and Micro Result Laboratory Tests Test 06/05/24 16:26 White Blood Count 13.5 K/uL (4.8-10.8) H Red Blood Count 4.46 MIL/uL (4.50-6.20) L Hemoglobin 13.9 g/dL (14.0-18.0) L Hematocrit 40.9 % (42-54) L Mean Corpuscular Volume 91.7 fL (79-99) Mean Corpuscular Hemoglobin 31.2 pg (27.0-33.0) Mean Corpuscular Hemoglobin Concent 34.0 g/dL (32.0-36.0) Red Cell Distribution Width 13.3 % (11.0-15.5) Platelet Count 240 K/uL (130-400) Mean Platelet Volume 9.5 fL (7.5-10.5) Immature Granulocyte % (Auto) 0.4 % (0-1) Neutrophils (%) (Auto) 85.5 % (40.0-77.0) H Lymphocytes (%) (Auto) 9.0 % (21.0-51.0) L Monocytes (%) (Auto) 4.8 % (3.0-13.0) Eosinophils (%) (Auto) 0.2 % (0.0-8.0) Basophils (%) (Auto) 0.1 % (0.0-5.0) Neutrophils # (Auto) 11.5 K/uL (1.8-7.7) H Lymphocytes # (Auto) 1.2 K/uL (1.0-4.8) Monocytes # (Auto) 0.7 K/uL (0.1-1.0) Eosinophils # (Auto) 0.03 K/uL (0.00-0.70) Basophils # (Auto) 0.01 K/uL (0.00-0.20) Absolute Immature Granulocyte (auto 0.06 K/uL (0-1) Nucleated Red Blood Cells 0.0 % (0.0-0.19) White Cell Morphology Comment See comments Sodium Level 134 mmol/L (136-145) L Potassium Level 4.1 mmol/L (3.5-5.1) Chloride Level 95 mmol/L (101-111) L Carbon Dioxide Level 32 mmol/L (21-32) Blood Urea Nitrogen 29 mg/dL (7-18) H Creatinine 1.1 mg/dL (0.5-1.3) Glomerular Filtration Rate Calc 66 mL/min (>90) Random Glucose 246 mg/dL (70-105) H Total Calcium 9.2 mg/dL (8.5-10.1) MDM CC: Constipation Historian: Patient Comorbidities: Throat cancer, PEG tube dependent, COPD, diabetes type 2, dyslipidemia, hypertension, narcotic use as an outpatient he was concerned Limitations by social determinants of health: None Differential diagnosis: Bowel obstruction, ileus, constipation, other Vital signs: Stable, afebrile. Mildly tachycardic initially heart rate 110, improved in the ER the treatment. Vital signs stable at the time of discharge. Labs (independently ordered and interpreted by me): Leukocytosis 13.5 K left shift 85% neutrophils. No bands. Mild normocytic anemia hemoglobin 13.9. Chemistry shows stable electrolytes a little bit of low chloride elevated BUN to creatinine ratio consistent with dehydration. Glucose 246. CT abdomen and pelvis without contrast (independently interpreted by me): No surgical pathology. There is prominent fecal material in the colon likely due to constipation which is consistent with the symptoms. No bowel obstruction. Mild stranding near the rectum consistent with proctitis. No diverticulitis. No obstruction. Symptoms of presentation most consistent with constipation with a little bit of mechanical proctitis. No signs of bacterial infection. Afebrile, no bloody stools. I suspect it may be due to the Geddes use and some dehydration since the patient recently started with the PEG tube. Treatment in ED: Patient received lactulose via the PEG tube, fluid bolus, and a enema here in the ER. He was able to stool and felt some relief. Plan: I did offer the patient admission to rehydrate and continue with the constipation therapy, but the patient reports that he prefers to go home. This can be managed at home. We will discharge with prescription for lactulose via the PEG tube as well as a few enemas. We will recommend increasing water intake and free water flushes through the PEG tube as needed. Patient has follow up in less than 48 hours with the oncologist, which is why the patient wants to go home so he should follow up as an outpatient to get started on his oncology treatment. I did give the patient return precautions. I also recommended decreasing the Geddes use as possible, rely on NSAIDs and Tylenol and try to spare the Geddes use goes it can increase constipation. ED Course Orders Procedure Category Date Status Time Cbc With Differential LAB 06/05/24 Complete 14:48 Lactated Ringers PHA 06/05/24 Complete 1000ml (Lactated 15:00 Ct Abdomen/Pelvis W/O CT 06/05/24 Resulted Contrast 14:48 Basic Metabolic Panel LAB 06/05/24 Complete 14:48 Lactulose 20 Gm/30 Ml PHA 06/05/24 Complete Udcup (Constulose 16:30 Enema Instructions CPOE 06/05/24 Transmitted 16:21 Current Medications Medications (Trade) Dose Ordered Sig/Nidia Route PRN Reason Start Time Stop Time Status Last Admin Dose Admin Lactated Ringer's 1,000 ml @ 0 mls/hr ONCE ONCE IV 06/05/24 15:00 06/05/24 15:01 DC Lactulose (Constulose 20gm/ 30ml Udcup) 20 gm ONCE ONCE PEG 06/05/24 16:30 06/05/24 16:31 DC 06/05/24 17:23 Vital Signs Date Time Temp Pulse Resp B/P (MAP) Pulse Ox O2 Delivery O2 Flow Rate FiO2 06/05/24 14:43 98.4 110 14 141/75 94 Room Air 0 DX & DISP Disposition: Discharge Departure Impression: Primary Impression: Constipation Additional Impression: Dehydration, mild Condition: Stable Scripts Lactulose (Lactulose) 10 Gram/15 Ml Solution 30 ML PEG TID for constipation, #500 ML 0 Refills Prov: MARCIN MENCHACA DO 06/05/24 Na Phos,M-B/Na Phos,Di-Ba (Fleet Enema) 19 Gram-7 Gram/118 Ml Enema 1 EACH SC BID for constipation for 3 Days, #10 EACH 0 Refills Prov: MARCIN MENCHACA DO 06/05/24 Additional Instructions: Your symptoms are consistent with constipation. This may be due to your recent dietary changes due to the PEG tube, narcotic use (Geddes tabs ) or dehydration. Your vital signs have been stable here in the ER. Your lab work ( CBC, metabolic panel ) shows mildly elevated glucose readings, and mild dehydration. It is otherwise unremarkable. The CT scan of your abdomen and pelvis shows constipation. There are no signs of an obstruction. You received lactulose in the PEG tube and an enema here in the ER. You also received a fluid bolus. As we discussed, I recommend giving lactulose via the PEG tube 2-3 times per day for the next couple of days. I have also prescribed Fleet enema. You can do this once or twice per day for the next few days. Be sure to drink plenty of liquids. I recommend avoiding opiates. alternate 800 mg of ibuprofen or 1000 mg of Tylenol as needed for discomfort. Please keep your already scheduled appointment with your doctor on Friday for re-evaluation. Please return to the emergency department if you have any concerning symptoms such as severe pain, vomiting, or high fever. Referrals: ARIANNE HILL MD (PCP) MARCIN MENCHACA DO Jun 05, 2024 18:18
[2024-06-05] MEDS ORDERED: NA P133E22 PR (18:25)
[2024-06-05] MEDS ORDERED: LACT10SO85 PEG (18:25)
== END 2024-06-05 18:49 | disposition home or self-care (01) ==
LOC: EDH 14:34
DX: K59.00 Constipation, unspecified (principal); E86.0 Dehydration; E11.9 Type 2 diabetes mellitus without complications; E78.00 Pure hypercholesterolemia, unspecified; I10 Essential (primary) hypertension; J44.9 Chronic obstructive pulmonary disease, unspecified; Z79.84 Long term (current) use of oral hypoglycemic drugs; Z79.4 Long term (current) use of insulin; Z79.899 Other long term (current) drug therapy; Z88.7 Allergy status to serum and vaccine; Z90.49 Acquired absence of other specified parts of digestive tract; Z93.1 Gastrostomy status
CPT/HCPCS: 36415; 74176; 80048; 85025; 99284